=== PATIENT | male | born 1975 | race African-American/Black ===

== ENCOUNTER 2017-03-10 14:16 | Emergency (ER) | payer MEDICAID ==
[2017-03-10 14:50] VITALS: BP 122/82
--- NOTE | 2017-03-10 14:53 | ED Physician Chart ---
Chief Complaint/HPI - Patient Information Date Seen:: 03/10/17 Time Seen:: 14:23 Chief Complaint:: Pt was brought in by ambulance because he is angry. History of Present Illness:: Pt reportdly has h/o schizophrenia. He reportedly has been out of his psych medications including haldol. Pt has been agitated and intermttently screams very loudly. Pt also exhibits aggressive behavior. Pt speaks clearly but is very uncooperative. H & P are therefore limited. Allergies:: Allergies Allergy/AdvReac Type Severity Reaction Status Date / Time No Known Allergies Allergy Verified 03/10/17 14:34 Vitals:: Vital Signs - 8 hr 03/10/17 03/10/17 14:25 14:33 Temp 98.2 F HR 83 RR 18 BP 128/77 122/82 O2 Sat % 98 Historian:: Patient Family MD/PCP:: Dr. Celestin LMP:: N/A Review:: Nurse's Note Reviewed Review of Systems - Review of Systems General/Constitutional: Other (Pt does not cooperate for ROS.) Past Medical History - Past Medical History Past Medical History: Other (Pt does not cooperate to provide info on PMH.) Family History: Other (Pt does not cooperate to provide info on FHx.) Social History: Other (Pt does not cooperate to provide info on SHx.) Surgical History: other (Pt does not cooperate to provide info on Surgical Hx.) Psychiatricy History: Schizophrenia Medication: Reviewed Family Medical History - Family Member Mother History Unknown: Yes Physical Exam - Physical Examination General/Constitutional: Awake, Well-developed, well-nourished, Alert, No distress, Ambulatory Other Gen/Cons comments:: Breathes comfortably, and speaks clearly. Pt screams from time to time, using foul language and not cooperative. Head: Atraumatic Eyes: Lids, conjuctiva normal, PERRL, EOMI Skin: Well hydrated, No lymphadenopathy ENMT: External ears, nose nl, Nasal exam nl, Oropharynx nl Neck: Nontender, Full ROM w/o pain, No nuchal rigidity, No mass, No stridor Respiratory: Nl effort/Exclusion, Clear to Auscultation, No Wheeze/Rhonchi/Rales Cardio Vascular: RRR, No murmur, gallop, rubs GI: No tenderness/rebounding/guarding, No organomegaly, No hernia, Normal BS's, Nondistended, No mass/bruits, No McBurney tenderness Other GI comments:: Abdomen is soft. : No CVA tenderness Extremities: No tenderness or effusion, Full ROM, normal strength in all extremities, No edema Neuro/Psych: Alert/oriented (oriented x 3.) Other Neuro/Psych comments:: Spontaneous movements noticed in all 4 extremities. Pt does not cooperate for full neurological exam. Misc: normal gait, Normal back, No paraspinal tenderness Labs/Radiology/EKG Results - Lab Results Results: Laboratory Tests 03/10/17 03/10/17 03/10/17 15:00 15:00 15:05 WBC 6.8 RBC 4.93 Hgb 13.6 Hct 41.8 MCV 84.8 MCH 27.6 MCHC Differential 32.5 RDW 13.7 Plt Count 294 MPV 7.8 Neutrophils % 63.7 Lymphocytes % 27.1 Monocytes % 7.6 Eosinophils % 1.1 Basophils % 0.5 PT INR PTT (Actin FS) Sodium Potassium Chloride Carbon Dioxide Anion Gap BUN Creatinine Est GFR ( Amer) Est GFR (Non-Af Amer) BUN/Creatinine Ratio Glucose Calcium Total Bilirubin AST ALT Alkaline Phosphatase Total Protein Albumin Globulin Albumin/Globulin Ratio Urine Source CLEAN C Urine Color YELLOW Urine Clarity SLIGHT HAZY Urine pH 5.5 Ur Specific [place] 1.030 Urine Protein 30 H Urine Glucose (UA) NEGATIVE Urine Ketones NEGATIVE Urine Blood NEGATIVE Urine Nitrate NEGATIVE Urine Bilirubin SMALL H Urine Urobilinogen 0.2 Ur Leukocyte Esterase NEGATIVE Urine RBC NONE SEEN Urine WBC 0-2 Ur Epithelial Cells FEW Urine Bacteria FEW Urine Mucus MANY Salicylates Urine Opiates Screen NEGATIVE Urine Methadone Screen NEGATIVE Acetaminophen Ur Barbiturates Screen NEGATIVE Ur Tricyclics Screen NEGATIVE Ur Phencyclidine Scrn NEGATIVE Amphetamines Screen NEGATIVE U Methamphetamines Scrn NEGATIVE U Benzodiazepines Scrn NEGATIVE U Cocaine Metab Screen NEGATIVE U Cannabinoids Screen NEGATIVE Ethyl Alcohol 03/10/17 03/10/17 15:05 15:05 WBC RBC Hgb Hct MCV MCH MCHC Differential RDW Plt Count MPV Neutrophils % Lymphocytes % Monocytes % Eosinophils % Basophils % PT 10.1 INR 0.97 PTT (Actin FS) 23.4 L Sodium 138 Potassium 3.8 Chloride 105 Carbon Dioxide 26.7 Anion Gap 10.1 BUN 15 Creatinine 1.0 Est GFR ( Amer) > 60.0 Est GFR (Non-Af Amer) > 60.0 BUN/Creatinine Ratio 15.0 Glucose 101 Calcium 9.8 Total Bilirubin 1.2 H AST 21 ALT 15 Alkaline Phosphatase 52 Total Protein 7.1 Albumin 4.4 Globulin 2.7 Albumin/Globulin Ratio 1.6 Urine Source Urine Color Urine Clarity Urine pH Ur Specific [place] Urine Protein Urine Glucose (UA) Urine Ketones Urine Blood Urine Nitrate Urine Bilirubin Urine Urobilinogen Ur Leukocyte Esterase Urine RBC Urine WBC Ur Epithelial Cells Urine Bacteria Urine Mucus Salicylates < 25.0 L Urine Opiates Screen Urine Methadone Screen Acetaminophen < 10.0 L Ur Barbiturates Screen Ur Tricyclics Screen Ur Phencyclidine Scrn Amphetamines Screen U Methamphetamines Scrn U Benzodiazepines Scrn U Cocaine Metab Screen U Cannabinoids Screen Ethyl Alcohol < 10 ED Septic Shock - . Is Septic Shock (SBP<90, OR Lactate>4 mmol\L) present?: No - <6hrs of presentation: Vital Signs: Vital Signs - 8 hr 03/10/17 03/10/17 14:25 14:33 Temp 98.2 F HR 83 RR 18 BP 128/77 122/82 O2 Sat % 98 Reassessment (Disposition) - Reassessment Reassessment:: 1540 Pt has been repeatedly evaluated. Pt is now calm. Pt appears to be comfortable and stable. 1610 Pt remains stable. Awaiting psych evaluation. 2030 Pt remains calm. No new complaint or findings. Awaiting psych evaluation. 0700 Pt slept through the night uneventfully. Still awaiting for psych evaluation. Case has been signed off to Dr. Tanmay Bowser about 0700 for continued care. Reassessment Condition:: Improved - Diagnosis Diagnosis:: Schizophrenia with agitation and aggressive behavior. ED Discharge Plan - Patient Disposition Instructions: Psychosis
[2017-03-10] MEDS ORDERED: Haloperidol Lactate 5 mg/mL 1mL Vial ONE (14:56)
[2017-03-10 15:12] LABS: % BASOPHILS 0.5 % (0.0-2.0); % EOSINOPHILS 1.1 % (0.0-5.0); % LYMPHOCYTES 27.1 % (20.0-50.0); % MONOCYTES 7.6 % (2.0-10.0); % NEUTROPHILS 63.7 % (40.0-80.0); HEMATOCRIT 41.8 % (39.0-49.0); HEMOGLOBIN 13.6 gm/dL (13.2-17.3); MEAN CELL VOLUME 84.8 fl (80-99); MEAN CORPUSCULAR HEMOGLOBIN 27.6 pg (26.0-30.0); MEAN CORPUSCULAR HGB CONC 32.5 pg (28.0-36.0); MEAN PLATELET VOLUME 7.8 fl; NEUTROPHILE ABSOLUTE 4.4 Th/cmm (1.8-8.0); PLATELET COUNT 294 Th/cmm (150-400); RED BLOOD COUNT 4.93 Mil/cmm (4.30-5.70); RED CELL DISTRIBUTION WIDTH 13.7 % (11.5-20.0); WHITE BLOOD COUNT 6.8 Th/cmm (4.8-10.8)
[2017-03-10 15:23] LABS: INR 0.97 (0.5-1.4); PROTHROMBIN TIME (TEST) 10.1 SECONDS (9.5-11.5)
[2017-03-10 15:28] LABS: ALB/GLOB RATIO 1.6 (1.0-1.8); ALKALINE PHOSPHATASE 52 U/L (34-104); ANION GAP 10.1 (7.0-16.0); BILIRUBIN,TOTAL 1.2 mg/dL (0.3-1.0); BUN - UREA NITROGEN 15 mg/dL (7-25); CALCIUM SERUM 9.8 mg/dL (8.6-10.3); CARBON DIOXIDE 26.7 mEq/L (21.0-31.0); CHLORIDE 105 mEq/L (98-107); GLUCOSE 101 mg/dL (70-105); POTASSIUM SERUM 3.8 mEq/L (3.5-5.1); SGOT 21 U/L (13-39); SGPT/ALT 15 U/L (7-52); SODIUM SERUM 138 mEq/L (136-145)
[2017-03-10 15:30] LABS: ACETAMINOPHEN < 10.0 ug/mL (10.0-30.0)
[2017-03-10] MEDS: Haloperidol Lactate 5 mg/mL 1mL Vial IM STA (15:31)
[2017-03-10 15:35] LABS: URINE BILIRUBIN SMALL (NEGATIVE); URINE COLOR YELLOW; URINE GLUCOSE (UA) NEGATIVE (NEGATIVE); URINE KETONE NEGATIVE (NEGATIVE)
[2017-03-10 15:36] LABS: URINE BLOOD NEGATIVE (NEGATIVE)
[2017-03-10 15:37] LABS: URINE BACTERIA FEW /hpf (NONE SEEN); URINE EPITHELIAL CELLS FEW /lpf (FEW); URINE PH 5.5; URINE PROTEIN 30 mg/dL (NEGATIVE); URINE RBC NONE SEEN /hpf (0-5); URINE UROBILINOGEN 0.2 E.U./dL (0.2 - 1.0); URINE WBC 0-2 /hpf (0-5)
[2017-03-10 15:40] LABS: AMPHETAMINE URINE NEGATIVE (NEGATIVE); BARBITURATES URINE NEGATIVE (NEGATIVE)
[2017-03-10 15:41] LABS: METHADONE URINE NEGATIVE (NEGATIVE)
== END 2017-03-11 08:15 | disposition home or self-care (01) ==
LOC: ER 14:16
DX: F20.9 Schizophrenia, unspecified (principal); R45.1 Restlessness and agitation
CPT/HCPCS: 36415-UA; 80053-TC; 80320-TC; 80329-TC; 81001-TC; 85025-TC; 85610-TC; J1630; Z7502